=== PATIENT | female | born 1945 | race Caucasian/White ===

== ENCOUNTER 2018-09-16 09:26 | Outpatient (CLI) | payer MEDICARE, BC ==
[~2018-09-16] VITALS: Ht 154.9 cm; Wt 58.5 kg
[2018-09-16] MEDS ORDERED: SIMVASTATIN20 MG ORAL (13:47)
[2018-09-16] MEDS ORDERED: VITAMIN B122500 MCG PO (13:47)
[2018-09-16] MEDS ORDERED: MELOXICAM15 MG PO (13:47)
[2018-09-16] MEDS ORDERED: OSTEO BI-FLEX1 EAC2 PO (13:47)
[2018-09-16] MEDS ORDERED: SUPER B-50 COM1 EACH PO (13:47)
[2018-09-16] MEDS ORDERED: METOPROLOL TART50 M1 ORAL (13:47)
[2018-09-16] MEDS ORDERED: VITAMIN E400 UNI5 PO (13:47)
[2018-09-16] MEDS ORDERED: FISH OIL CAP1000 MG ORAL (13:47)
[2018-09-16 13:50] VITALS: BP 173/77
--- NOTE | 2018-09-16 14:49 | GI Initial Consult Note ---
History of Present Illness General Date patient seen: Sep 16, 2018 Time patient seen: 14:46 Referring physician: LUISITO Reason for Consultation: GERD Present Illness HPI 73-year-old female patient presents to the clinic with symptomatic GERD. Patient states that her last colonoscopy was approximately 5 years ago and has a history of colonic polyps. Patient denies any constipation, diarrhea, abdominal bloating, nausea vomiting. Denies any unintentional weight loss or changes in dietary habits. No signs of abuse or neglect. Patient is not fall risk. Home Meds Reported Medications Glucosamine/D3/Boswellia Daria (OSTEO BI-FLEX CAPLET) 1 Each Tablet, 1 EACH PO DAILY, TAB 09/16/18 Vitamin B Complex (SUPER B-50 COMPLEX) 1 Each Capsule, 1 EACH PO DAILY, CAP 09/16/18 Cyanocobalamin (Vitamin B-12) (Vitamin B12) 2,500 Mcg Tablet, 1000 MCG PO DAILY , TAB 09/16/18 Fish Oil (Fish Oil 1,000 mg Capsule) 1 Each Capsule, ORAL DAILY, CAP 09/16/18 Simvastatin (ZOCOR) 20 Mg Tablet, 20 MG ORAL BEDTIME, TAB 09/16/18 Meloxicam* (MELOXICAM*) 15 Mg Tablet, 15 MG PO DAILY, TAB 09/16/18 Metoprolol Tartrate* (METOPROLOL TARTRATE*) 50 Mg Tablet, 50 MG ORAL EVERY 12 HOURS, TAB 09/16/18 Vitamin E Mixed (VITAMIN E) 400 Unit Capsule, 400 UNIT PO DAILY, CAP 09/16/18 Med list reviewed/reconciled: Yes Allergies: Coded Allergies: No Known Allergies (Unverified , 09/16/18) Patient History History Provided By: Patient, Medical Record [facility] Narrative Hypertension GERD Hemorrhoids Colonic polyps Past surgical history Cosmetic surgery Family History Narrative Father had a myocardial infarction Mother had breast cancer Sister had pancreatic cancer Brother had kidney cancer Social History: Reports: alcohol use - Social drinking, rare Review of Systems All Other Systems: negative except mentioned in HPI Physical Exam Vital Signs Date Time Temp Pulse Resp B/P (MAP) Pulse Ox O2 Delivery O2 Flow Rate FiO2 09/16/18 13:50 97.9 61 173/77 96 Sp02 EP Interpretation: reviewed, normal General Appearance: well appearing, no apparent distress, alert Head: normocephalic EENT: PERRL/EOMI, normal ENT inspection Neck: supple Respiratory: normal breath sounds, no respiratory distress Cardiovascular: normal rate Gastrointestinal: normal inspection, non tender, soft, normal bowel sounds, non -distended Rectal: deferred Genitourinary: no CVA tenderness Musculoskeletal: normal inspection, back normal Neurologic: normal inspection, alert, oriented x3, responsive Psychiatric: normal inspection, judgement/insight normal, memory normal Skin: normal inspection, normal color, no rash, warm/dry, palpation normal, well hydrated Lymphatic: normal inspection, no adenopathy GI: Plan Problems: (1) GERD (gastroesophageal reflux disease) (2) Colonoscopy planned (3) Hypertension (4) Hemorrhoids (5) History of colonic polyps Plan EGD/colonoscopy to be scheduled September 22, 2018. - CLD & (Nulytely/Suprep/Movi-Prep) prep instructions given and acknowledged by patient. - NPO @ ID day prior procedure explained. Will follow with additional recs post procedure. Seen with Dr. Bustillo. Thank you for this patient referral. The patient was seen and examined at bedside and all new and available data was reviewed in the patients chart. I agree with the above findings, impression and plan. (Patient seen earlier today. Signature stamp does not reflect patient encounter time.). - MD Yee Galeano,[facility] HealthcareDylan SILK CONDITIONER Sep 16, 2018 14:49
== END 2018-09-16 09:56 | disposition home or self-care (01) ==
LOC: PAN 09:26
DX: K21.9 Gastro-esophageal reflux disease without esophagitis (principal); I10 Essential (primary) hypertension; K64.9 Unspecified hemorrhoids; Z86.010 Personal history of colon polyps
CPT/HCPCS: 99202

== ENCOUNTER 2018-09-22 08:45 | Day surgery (SDC) | payer MEDICARE, BC ==
[~2018-09-22] VITALS: Ht 154.9 cm; Wt 58.5 kg
[2018-09-22] VITALS (8 sets, daily range): BP systolic 110–166; BP diastolic 60–75
[~2018-09-22 08:45] MED LIST: FISH OIL CAP1000 MG ORAL; MELOXICAM15 MG PO; METOPROLOL TART50 M1 ORAL; OSTEO BI-FLEX1 EAC2 PO; SIMVASTATIN20 MG ORAL; SUPER B-50 COM1 EACH PO; VITAMIN B122500 MCG PO; VITAMIN E400 UNI5 PO
[2018-09-22] MEDS ORDERED: CALTRATE+D3 PL1 EACH PO (09:46)
[2018-09-22] MEDS ORDERED: TURMERIC 500 M1 EAC1 PO (09:46)
[2018-09-22] MEDS ORDERED: SUPER COLLAGEN PO (09:46)
[2018-09-22] MEDS ORDERED: TURMERIC 450-51 EAC1 PO (09:46)
--- NOTE | 2018-09-22 09:53 | Pre-Procedure Note/Attestation ---
Pre-Procedure Note/Attestation Complete Prior to Procedure Planned Procedure: not applicable Procedure Narrative: esophagogastroduodenoscopy and colonoscopy Indications for Procedure Pre-Operative Diagnosis: colon polyps, chronic GERD Attestation I attest that I discussed the nature of the procedure; its benefits; risks and complications; and alternatives (and the risks and benefits of such alternatives ), prior to the procedure, with the patient (or the patient's legal patient services representative). I attest that, if there was a reasonable possibility of needing a blood transfusion, the patient (or the patient's legal patient services representative) was given the [facility] standardized written summary, pursuant to the Rohan Payson Blood Safety Act ([place] Health and Safety Code # 1645, as amended). I attest that I re-evaluated the patient just prior to the surgery and that there has been no change in the patient's H&P, except as documented below: Toby Bustillo MD Sep 22, 2018 09:53
--- NOTE | 2018-09-22 09:54 | Short Stay Surgery H&P ---
History of Present Illness History of Present Illness Chief Complaint see recent office note HPI Armida Fields is a 73 year old female who was admitted on for Gerd,History Of Colon Polyps Patient History Allergies: Coded Allergies: No Known Allergies (Unverified , 09/16/18) Medication History Scheduled Ca Carb/D3/Mag Ox/Applications Developer/Fred/Zn (Caltrate+D3 Plus Mineral Minis), 1 EACH PO DA, ( Reported) Cyanocobalamin (Vitamin B-12) (Vitamin B12), 1,000 MCG PO DAILY, (Reported) Fish Oil (Fish Oil 1,000 mg Capsule), Unknown Dose ORAL DAILY, (Reported) Glucosamine/D3/Boswellia Daria (Osteo Bi-Flex Caplet), 1 EACH PO DAILY, ( Reported) Meloxicam* (Meloxicam*), 15 MG PO DAILY, (Reported) Metoprolol Tartrate* (Metoprolol Tartrate*), 50 MG ORAL EVERY 12 HOURS, ( Reported) Simvastatin (Zocor), 20 MG ORAL BEDTIME, (Reported) Turmeric/Turmeric Root Extract (Turmeric 500 mg Capsule), 1 EACH PO DA, ( Reported) Vitamin B Complex (Super B-50 Complex), 1 EACH PO DAILY, (Reported) Vitamin E Mixed (Vitamin E), 400 UNIT PO DAILY, (Reported) [Super Collagen], 1 TBS PO DA, (Reported) Miscellaneous Medications Turmeric/Turmeric Root Extract (Turmeric 450-50 mg Capsule), 1 EACH PO, ( Reported) Physical Exam Vital Signs Last Vital Signs Date Time Temp Pulse Resp B/P (MAP) Pulse Ox O2 Delivery O2 Flow Rate FiO2 09/22/18 09:30 98.1 61 20 166/75 96 Room Air Plan Attestation Are the patient's medical conditions optimized for surgery? Toby Bustillo MD Sep 22, 2018 09:54
[2018-09-22] MEDS ORDERED: LR 1000ml ONE (10:00)
[2018-09-22] MEDS ORDERED: Propofol 200mg/20ml IV ONE (10:00)
[2018-09-22] MEDS ORDERED: LR 1000ml 1,000 ML IVLG SCH (10:33)
--- NOTE | 2018-09-22 10:37 | Anethesia Preoperative Eval ---
Anesthesia Pre-op PMH/ROS General Date of Evaluation: Sep 22, 2018 Time of Evaluation: 10:05 Anesthesiologist: Bettina ASA Score: ASA 2 Mallampati Score Class I : Soft palate, uvula, fauces, pillars visible Class II: Soft palate, uvula, fauces visible Class III: Soft palate, base of uvula visible Class IV: Only hard plate visible Mallampati Classification: Class II Surgeon: Keny Diagnosis: GERD, colon polyps Surgical Procedure: EGS, Colonoscopy Allergies: Coded Allergies: No Known Allergies (Unverified , 09/16/18) Medications: see eMAR Patient NPO?: Yes NPO Date: Sep 20, 2018 NPO Time: 14:00 Past Medical History Cardiovascular: Reports: HTN; Denies: CAD, NE, valve dz, arrhythmia, other Pulmonary: Denies: asthma, COPD, CARMELO, other Gastrointestinal/Genitourinary: Reports: GERD; Denies: CRI, ESRD, other Neurologic/Psychiatric: Denies: dementia, CVA, depression/anxiety, TIA, other Endocrine: Denies: DM, hypothyroidism, steroids, other HEENT: Reports: cataract (L), cataract (R); Denies: glaucoma, MESA GRANDE (L), MESA GRANDE (R), other Hematology/Immune: Denies: anemia, DVT, bleeding disorder, other Musculoskeletal/Integumentary: Denies: OA, RA, DJD, DDD, edema, other PMH Narrative: HTN, GERD, hypercholesterol PSxH Narrative: C/S, cataract, facial cosmetic Anesthesia Pre-op Phys. Exam Physician Exam Last Vital Signs Date Time Temp Pulse Resp B/P (MAP) Pulse Ox O2 Delivery O2 Flow Rate FiO2 09/22/18 09:30 98.1 61 20 166/75 96 Room Air Constitutional: NAD Neurologic: CN 2-12 intact Cardiovascular: RRR, no M/R/G Respiratory: CTA Gastrointestinal: S/NT/ND Airway Exam Mallampati Score: Class II MO: full ROM: full Teeth: intact Anesthesia Pre-op A/P Studies Pre-op Studies: EKG - SR, voltage criteria for LVH Risk Assessment & Plan Assessment: Class 2 patient for EGD, Colonoscopy Plan: GA, TIVA Status Change Before Surgery: No Pre-Antibiotics Drug: None Rohan Dunbar MD Sep 22, 2018 10:37
--- NOTE | 2018-09-22 10:38 | Immediate Post-Op Evaluation ---
Immediate Post-Op Evalulation Immediate Post-Op Evalulation Procedure: EGD, colonoscopy Date of Evaluation: Sep 22, 2018 Time of Evaluation: 11:05 IV Fluids: 500 Blood Pressure Systolic: 120 Blood Pressure Diastolic: 54 Pulse Rate: 73 Respiratory Rate: 20 O2 Sat by Pulse Oximetry: 98 Temperature (Fahrenheit): 97.6 Pain Score (1-10): 0 Nausea: No Vomiting: No Complications No complication Patient Status: awake, patent, none Hydration Status: adequate Drug: None Rohan Dunbar MD Sep 22, 2018 10:38
[2018-09-22] MEDS ORDERED: fentaNYL 100 mcg/2 mL IV PRN (10:45)
--- NOTE | 2018-09-22 10:55 | Endoscopy Procedure Note ---
Endoscopy Procedure Note General Indication for Procedure: screening colon, Chronic GERD Procedures Performed: EGD, colonoscopy Operative Findings/Diagnosis: 2 polyps Specimen: yes Pt Tolerated Procedure Well: Yes Estimated Blood Loss: none Anesthesia Anesthesiologist: sherry Anesthesia: MAC Inserted Devices Implant(s) used?: No Quality Quality of Bowel Preparation: Good Did scope reach the cecum?: Yes Was there any complications?: No GI Core Measures 50 yrs or older w/o bx or poly: No 10yrs. F/U not recommended: Yes If not recommended, why?: Above average risk 10 yrs. F/U needed: Yes 18 years or older w/prev. colo: Yes <3yrs. since last colonoscopy: No Toby Bustillo MD Sep 22, 2018 10:55
--- NOTE | 2018-09-22 11:07 | 48 Hour Post Anesthesia Eval ---
Post Anesthesia Evaluation Procedure: EGD, colonoscopy Date of Evaluation: Sep 22, 2018 Time of Evaluation: 11:30 Blood Pressure Systolic: 125 0: 56 Pulse Rate: 74 Respiratory Rate: 13 Temperature (Fahrenheit): 97.2 O2 Sat by Pulse Oximetry: 98 Airway: patent Nausea: No Vomiting: No Pain Intensity: 0 Hydration Status: adequate Cardiopulmonary Status: Stable Mental Status/LOC: patient returned to baseline Follow-up Care/Observations: As per surgery Post-Anesthesia Complications: No anesthetic complication Follow-up care needed: N/A Rohan Dunbar MD Sep 22, 2018 11:07
--- NOTE | 2018-09-22 19:45 | Procedure Note ---
DATE OF PROCEDURE: 09/22/2018 SURGEON: Toby Bustillo M.D. PROCEDURES: 1. Upper endoscopy with biopsy. 2. Colonoscopy with snare polypectomy. ANESTHESIOLOGIST: . INSTRUMENT: Olympus adult flexible upper endoscope and colonoscope. INDICATION: History of colonic polyp, screening colonoscopy evaluation, chronic GERD. REASON FOR PROCEDURE: The procedure, risks, benefits, and possible consequences, including hemorrhage, aspiration, perforation and infection, and alternative treatments, were explained to the patient/legal guardian by Dr. Toby Bustillo and the patient/legal guardian understood and accepted these risks. PROCEDURE IN DETAIL: After informed consent was obtained and the patient was adequately sedated, Olympus upper endoscope was advanced from the mouth into the second portion of the duodenum and retroflexion was performed in the stomach. The patient had evidence of diffuse atrophic gastritis. Random biopsy from antrum and body was obtained to rule out H. pylori infection. The patient had a minimum distal esophagitis right at the GE junction, not significant, maybe a little bit of tear with the scope passed into coughing, but no active bleeding at this time. At this time, the upper endoscope was removed and the patient was turned over for colonoscopy. First, rectal exam was performed which was positive for internal hemorrhoids. Then, scope was advanced from rectum into the cecum documented by appendiceal orifice, ileocecal valve, and right upper quadrant palpation. Quality of prep was good except for the cecum, cecum was covered with a thick brownish liquid that we washed as best as we could. There was a sessile polyp measured roughly about 6 mm in the proximal ascending colon, removed with a hot snare polypectomy technique. There was another diminutive polyp in the ascending colon, removed with the cold biopsy forceps technique. The rest of the examination grossly looked within normal limits. Retroflexion of rectum showed evidence of internal hemorrhoids. SUMMARY OF FINDINGS: 1. Atrophic gastritis, status post biopsy. 2. Minimum distal esophagitis. 3. Two colonic polyps removed, see above for details. 4. Internal hemorrhoids. RECOMMENDATIONS: Follow up biopsy results and treat accordingly. We will recommend repeat colonoscopy at least in 5 years. I want to thank Dr. Ervin for this kind referral. Toby Cecy Bustillo DR: GEOVANY JOB#: [id number] CC: Sherif Ervin M.D.; Fax#: [phone]
== END 2018-09-22 12:10 | disposition home or self-care (01) ==
LOC: GAS 08:45
DX: Z12.11 Encounter for screening for malignant neoplasm of colon (principal); D12.2 Benign neoplasm of ascending colon; K64.8 Other hemorrhoids; Z86.010 Personal history of colon polyps; K21.9 Gastro-esophageal reflux disease without esophagitis; K29.50 Unspecified chronic gastritis without bleeding; K20.9 Esophagitis, unspecified; I10 Essential (primary) hypertension; E78.00 Pure hypercholesterolemia, unspecified
CPT/HCPCS: 43239; 45380; 45385; 93005; J0360; J2704; 94003; 94150